=== PATIENT | female | born 1995 | race Caucasian/White ===

== ENCOUNTER 2017-04-01 01:27 | Emergency (ER) | payer BC ==
[~2017-04-01] VITALS: Ht 162.6 cm; Wt 66.9 kg
[~2017-04-01 01:27] MED LIST: MISC80CA PO; MULT-506 PO; SERT50TA PO; ZNTT/150 PO
[2017-04-01 01:46] VITALS: TEMP 36.9; Ht 162.6 cm; Wt 66.9 kg
[2017-04-01 02:22] LABS: HEMATOCRIT 38.5 % (37-47); MEAN CORPUSCULAR HEMOGLOBIN 29.8 pg (25-34); MEAN CORPUSCULAR HGB CONC 35.1 g/dl (32-36); MEAN PLATELET VOLUME 9.4 fL (7.4-10.4); PLATELET COUNT 174 K/uL (130-400); RED BLOOD COUNT 4.53 M/uL (4.2-5.4); WHITE BLOOD COUNT 5.57 K/uL (4.8-10.8)
[2017-04-01 02:26] LABS: URINE APPEARANCE CLEAR (CLEAR); URINE BILIRUBIN NEG (NEG); URINE COLOR YELLOW; URINE NITRITE NEG (NEG); URINE SPECIFIC GRAVITY 1.014 (1.000-1.030); UROBILINOGEN NEG (NEG); ZZUR CULT IF INDIC CLEAN CATCH NO
[2017-04-01 02:31] LABS: MANUAL MICROSCOPIC REQUIRED? NO; REVIEW REQ? NO
[2017-04-01 02:39] LABS: BUN/CREATININE RATIO 19.9 (10-20); CALCIUM 8.9 mg/dl (8.5-10.1); CREATININE 0.88 mg/dl (0.60-1.20); POTASSIUM 3.5 mmol/L (3.5-5.1)
[2017-04-01 02:41] LABS: ALB/GLOB RATIO 1.2 (0.9-2)
[2017-04-01 02:53] LABS: COMPLETE YES; EOSINOPHIL % 3.5 %; LYMPH ABS # 1.91 K/uL (1.2-3.4); LYMPHOCYTE % 34.3 %; NEUTROPHILS % 25.4 %; VARIANT LYM ABS # 1.66 K/uL; VARIANT LYMPHOCYTE % 29.8 %
[2017-04-01] MEDS ORDERED: LIDOCAINE HCL 2% VISC SOLN 20 ML UDC PO STA (03:51)
[2017-04-01] MEDS ORDERED: ALUMINUM/MAGNESIUM SUSP 30 ML UDC PO STA (03:51)
--- NOTE | 2017-04-01 04:08 | EMERGENCY ROOM VISIT NOTE ---
History Report prepared by [facility]: Beau Ramsay Under the Supervision of: Dr. Angelica Hogan D.O. First contact with patient: 03:46 Chief Complaint: ABDOMINAL PAIN Stated Complaint: SHARP BURNING PAIN IN RT CHEST AREA,UPSET STOMACH Nursing Triage Summary: pt reports abdominal pain X 2 weeks ago that went away . then today at 1430 started with same pain that has moved to under R ribs . now hurts to take a deep breath History of Present Illness The patient is a 21 year old female who presents to the Emergency Room with complaints of a burning epigastric that began yesterday afternoon. Yesterday, she went into work having eaten lunch around 1300. She then ate a late dinner around 1530 and felt that her food was "catching." She ate a stuffed pepper soup. She has a history of GERD, but her reflux has been worse recently. Her pain worsened later in the day and felt like it was "scratching her insides." She notes that she had a similar pain 2 weeks ago that lasted 1.5 days, but it was lower in her abdomen. She has a family history of gallbladder disease as well. She notes that she takes 2 pills of Ranitidine everyday to regulate her GERD symptoms. She has not missed any dosages recently. She currently notes some mild pain to her abdomen still with pain to her back as well. She denies any chest pain. Source of History: patient Onset: yesterday afternoon Position: chest (right lower) Symptom Intensity: mild Quality: burning Timing: constant Associated Symptoms: + back pain, No chest pain Review of Systems See HPI for pertinent positives & negatives. A total of 10 systems reviewed and were otherwise negative. Past Medical & Surgical Medical Problems: (1) No pertinent past medical history Surgical Problems: (1) No pertinent past surgical history Family History No pertinent family history Social History Smoking Status: Never Smoker Alcohol Use: none Drug Use: none Marital Status: single Housing Status: lives with family Occupation Status: employed Current/Historical Medications Scheduled Misc Natural Products (Adrenal), 1 CAP PO DAILY Multivitamin (Multivitamin), 1 TAB PO DAILY Sertraline (Zoloft), 50 MG PO DAILY Scheduled PRN Ranitidine (Zantac), 150 MG PO DAILY PRN Allergies Coded Allergies: No Known Allergies (Verified , `, 12/18/15) Physical Exam Vital Signs Date Time Temp Pulse Resp B/P (MAP) Pulse Ox O2 Delivery O2 Flow Rate FiO2 04/01/17 04:40 52 16 117/69 97 04/01/17 01:46 36.9 70 18 141/79 100 Room Air Physical Exam HEENT: Head - normocephalic and atraumatic Pupils are equal, round, and reactive to light. Extraocular eye muscles are intact, and sclera are anicteric. Nose - moist nasal mucosa without discharge. Mouth - moist buccal mucosa. Oropharynx is nonerythematous and there is no tonsillar exudate or edema noted. Neck: Supple; no JVD, nuchal rigidity, cervical lymphadenopathy. Heart: Regular rate and rhythm. There is a normal S1 and S2 with no murmurs, clicks, or gallops appreciated. Lungs: Clear to auscultation bilaterally with no wheezes, rales, or rhonchi. Abdomen: Soft, completely nontender, nondistended, with good bowel sounds. There are no palpable pulsatile masses or hepatosplenomegaly. There is no guarding, rigidity, or rebound noted. Extremities: No evidence of cyanosis, clubbing, or edema. There are easily palpable peripheral pulses. Skin: warm and dry with good turgor and no rashes. Medical Decision & Procedures Laboratory Results 04/01/17 02:15 Red Blood Count 4.53, Mean Corpuscular Volume 85.0, Mean Corpuscular Hemoglobin 29.8, Mean Corpuscular Hemoglobin Concent 35.1, Mean Platelet Volume 9.4 04/01/17 02:15 Test 04/01/17 00:00 04/01/17 02:15 Urine Color YELLOW Urine Appearance CLEAR (CLEAR) Urine pH 5.0 (4.5-7.5) Urine Specific [place] 1.014 (1.000-1.030) Urine Protein NEG (NEG) Urine Glucose (UA) NEG (NEG) Urine Ketones NEG (NEG) Urine Occult Blood NEG (NEG) Urine Nitrite NEG (NEG) Urine Bilirubin NEG (NEG) Urine Urobilinogen NEG (NEG) Urine Leukocyte Esterase NEG (NEG) Urine Test NEG (NEG) White Blood Count 5.57 K/uL (4.8-10.8) Red Blood Count 4.53 M/uL (4.2-5.4) Hemoglobin 13.5 g/dL (12.0-16.0) Hematocrit 38.5 % (37-47) Mean Corpuscular Volume 85.0 fL (80-100) Mean Corpuscular Hemoglobin 29.8 pg (25-34) Mean Corpuscular Hemoglobin Concent 35.1 g/dl (32-36) Platelet Count 174 K/uL (130-400) Mean Platelet Volume 9.4 fL (7.4-10.4) RDW Standard Deviation 36.2 fL (36.4-46.3) RDW Coefficient of Variation 11.8 % (11.5-14.5) Neutrophils % (Manual) 25.4 % Lymphocytes % (Manual) 34.3 % Variant Lymphocytes % (manual) 29.8 % Monocytes % (Manual) 7.0 % Eosinophils % (Manual) 3.5 % Neutrophils # (Manual) 1.41 K/uL (1.4-6.5) Total Absolute Neutrophils 1.41 K/uL (1.4-6.5) Lymphocytes # (Manual) 1.91 K/uL (1.2-3.4) Absolute Variant Lymphocytes 1.66 K/uL Total Absolute Lymphocytes 3.57 K/uL (1.2-3.4) Monocytes # (Manual) 0.39 K/uL (0.11-0.59) Eosinophils # (Manual) 0.19 K/uL (0-0.5) Red Blood Cell Morphology Unremarkable Anion Gap 6.0 mmol/L (3-11) Est Creatinine Clear Calc Drug Dose 94.3 ml/min Estimated GFR () 108.1 Estimated GFR (Non- 93.3 BUN/Creatinine Ratio 19.9 (10-20) Calcium Level 8.9 mg/dl (8.5-10.1) Total Bilirubin 0.2 mg/dl (0.2-1) Aspartate Amino Transf (AST/SGOT) 18 U/L (15-37) Alanine Aminotransferase (ALT/SGPT) 21 U/L (12-78) Alkaline Phosphatase 58 U/L (45-117) Total Protein 7.2 gm/dl (6.4-8.2) Albumin 3.9 gm/dl (3.4-5.0) Globulin 3.3 gm/dl (2.5-4.0) Albumin/Globulin Ratio 1.2 (0.9-2) Lipase 221 U/L (73-393) Laboratory results per my review. Medications Administered Medications (Trade) Dose Ordered Sig/[place] Route Start Time Stop Time Status Last Admin Dose Admin Lidocaine HCl (Viscous Lidocaine 2% Soln) 10 ml NOW STAT PO 04/01/17 03:51 04/01/17 03:52 DC 04/01/17 03:51 10 ML Al Hydroxide/Mg Hydroxide (Maalox Susp) 30 ml NOW STAT PO 04/01/17 03:51 04/01/17 03:52 DC 04/01/17 03:51 30 ML Procedure Maalox Susp 30 ml PO Lidocaine HCl 10 ml PO ED Course 0346: Past medical records reviewed. The patient was evaluated in room B10. A complete history and physical exam was performed. Laboratory protocols had been performed. I reviewed the results of these tests with the patient. 0351: Ordered Maalox Susp 30 ml PO, Lidocaine HCl 10 ml PO 0424: I reassessed the patient at this time. The GI cocktail improved her symptoms slightly. 0435: Upon reevaluation, the patient was resting. I discussed findings and results with her. We discussed the patient's current medication regimen. I explained that she may need to be switched to a PPI. I suggested that she follow-up with her PCP this week. We talked about foods to avoid to minimize her reflux symptoms. She verbalized agreement of the treatment plan. She was discharged home. Medical Decision The patient is a 21 year old female who presents to the ED with epigastric pain. Differential diagnosis includes GERD, cholecystitis, pancreatitis, and esophagitis. Laboratory Results: Normal white blood cell count, normal H&H, normal renal function, normal glucose , normal LFTs, normal lipase, negative urinalysis, and negative . This is a 21-year-old female patient presents to the emergency room with some epigastric discomfort that radiated through to her back. Laboratory testing was normal. She does have a lengthy history of GERD. She does take ranitidine. I gave the patient a GI cocktail which did seem to improve her symptoms. She was told to return the emergency department if she had any worsening symptoms. Otherwise she should follow-up with the PCP for medication adjustment. Medication Reconcilliation Current Medication List: was personally reviewed by me Blood Pressure Screening Patient's blood pressure: Normal blood pressure Blood pressure disposition: Did not require urgent referral Impression Primary Impression: Epigastric abdominal pain Additional Impression: GERD (gastroesophageal reflux disease) Scribe Attestation The scribe's documentation has been prepared under my direction and personally reviewed by me in its entirety. I confirm that the note above accurately reflects all work, treatment, procedures, and medical decision making performed by me. Departure Information Dispostion Home / Self-Care Referrals Nilda Jerry D.O. (PCP) Forms HOME CARE DOCUMENTATION FORM, IMPORTANT VISIT INFORMATION Patient Instructions ED Epigastric Pain [facility], ED GERD, My [facility] Additional Instructions Rest. take a bland diet Follow up with PCP to switch ranitidine You may need referral to GI for an EGD Problem Qualifiers Additional Impression: GERD (gastroesophageal reflux disease) Esophagitis presence: without esophagitis Qualified Codes: K21.9 - Gastro- esophageal reflux disease without esophagitis
[2017-04-01 04:40] VITALS: BP 117/69; PULSE 52; O2SAT 97
== END 2017-04-01 04:41 | disposition home or self-care (01) ==
LOC: C.EDB 01:29
DX: R10.13 Epigastric pain (principal); K21.9 Gastro-esophageal reflux disease without esophagitis